=== PATIENT | female | born 1990 | race African-American/Black ===

== ENCOUNTER 2019-05-12 23:09 | Emergency (ER) | payer OTHER ==
[~2019-05-12] VITALS: Ht 162.6 cm; Wt 68.0 kg
[2019-05-13] MEDS ORDERED: NORCO 5-325 TA1 EAC1 PO (00:10)
[2019-05-13 00:35] VITALS: BP 140/83
== END 2019-05-13 00:30 | disposition home or self-care (01) ==
LOC: ER 23:09
DX: S62.626A Displaced fracture of middle phalanx of right little finger, initial encounter for closed fracture (principal); Y04.8XXA Assault by other bodily force, initial encounter; Y92.89 Other specified places as the place of occurrence of the external cause; Y93.89 Activity, other specified; Y99.8 Other external cause status